=== PATIENT | female | born 2000 | race Two or more races ===

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

== ENCOUNTER 2019-12-17 22:14 | Emergency (ER) | payer BC ==
[2017-12-19 03:10] VITALS: BP 108/75
[~2019-12-17 22:14] MED LIST: CEPH-264 PO; FAMO-63 PO; NAPR-695 PO
== END 2019-12-17 23:29 | disposition left against medical advice (07) ==
LOC: ER 22:14
DX: R50.9 Fever, unspecified (principal); J02.9 Acute pharyngitis, unspecified; M54.2 Cervicalgia; Z53.21 Procedure and treatment not carried out due to patient leaving prior to being seen by health care provider

== ENCOUNTER 2020-04-11 22:37 | Emergency (ER) | payer BC ==
[~2020-04-11] VITALS: Ht 160 cm; Wt 47.7 kg
[2020-04-11 22:50] VITALS: BP 119/72
[2020-04-11] MEDS ORDERED: NAPR-683 PO (22:59)
--- NOTE | 2020-04-11 23:01 | PHYS DOC ---
Past Medical History Past Medical History: No Pertinent History Past Surgical History: No Surgical History Smoking Status: Never Smoker Alcohol Use: None Drug Use: None General Adult EDM: Chief Complaint: LOWER EXT PAIN HPI: HPI: Patient is a 20 year old female that presents with the chief complaint of non t raumatic left toe pain. States pain started this AM. States has has previous pain before. Pain with ROM left great toe. Patient requesting Xray. She has not taken any home medications. Review of Systems: Review of Systems: Constitutional: Denies fever or chills. [] Eyes: Denies change in visual acuity. [] HENT: Denies nasal congestion or sore throat. [] Respiratory: Denies cough or shortness of breath. [] Cardiovascular: Denies chest pain or edema. [] GI: Denies abdominal pain, nausea, vomiting, bloody stools or diarrhea. [] : Denies dysuria. [] Musculoskeletal: left toe pain. Integument: Denies rash. [] Neurologic: Denies headache, focal weakness or sensory changes. [] Endocrine: Denies polyuria or polydipsia. [] Lymphatic: Denies swollen glands. [] Psychiatric: Denies depression or anxiety. [] Heart Score: Risk Factors: Risk Factors: DM, Current or recent (<one month) smoker, HTN, HLP, family histo ry of CAD, obesity. Risk Scores: Score 0 - 3: 2.5% MACE over next 6 weeks - Discharge Home Score 4 - 6: 20.3% MACE over next 6 weeks - Admit for Clinical Observation Score 7 - 10: 72.7% MACE over next 6 weeks - Early Invasive Strategies Allergies: Allergies: Allergies Coded Allergies Type Severity Reaction Last Updated Verified No Known Drug Allergies 11/24/16 No Physical Exam: PE: Constitutional: Well developed, well nourished, no acute distress, non-toxic appearance. [] HENT: Normocephalic, atraumatic, bilateral external ears normal, oropharynx moist, no oral exudates, nose normal. [] Eyes: PERRLA, EOMI, conjunctiva normal, no discharge. [] Neck: Normal range of motion, no tenderness, supple, no stridor. [] Cardiovascular:Heart rate regular rhythm, no murmur [] Lungs & Thorax: Bilateral breath sounds clear to auscultation [] Abdomen: Bowel sounds normal, soft, no tenderness, no masses, no pulsatile masses. [] Skin: Warm, dry, no erythema, no rash. [] Back: No tenderness, no CVA tenderness. [] Extremities: No tenderness, no cyanosis, no clubbing, ROM intact, no edema. [pain with rom left great toe, feels warm to touch, minimal swelling] Neurologic: Alert and oriented X 3, normal motor function, normal sensory function, no focal deficits noted. [] Psychologic: Affect normal, judgement normal, mood normal. [] EKG: EKG: [] Radiology/Procedures: Radiology/Procedures: [] Impression: xray negative Course & Med Decision Making: Course & Med Decision Making Pertinent Labs and Imaging studies reviewed. (See chart for details) [] Xray negative. Uric acid level drawn. Rx naprosyn Dragon Disclaimer: Dragon Disclaimer: This electronic medical record was generated, in whole or in part, using a voice recognition dictation system. Departure Departure Impression: Primary Impression: Toe pain, left Disposition: 01 HOME, SELF-CARE Condition: STABLE Referrals: NO PCP (PCP) Patient Instructions: Crush Injury, Fingers or Toes Scripts Naproxen (NAPROSYN) 500 Mg Tablet 500 MG PO BID, #20 TAB Prov: LORENZO GAO I DO 04/11/20 Justicifation of Admission Dx: Justifications for Admission: Justification of Admission Dx: N/A LORENZO GAO I DO Apr 11, 2020 23:01
--- NOTE | 2020-04-12 07:19 | RAD ---
Right toes 3 views: Reason for examination: Pain. No acute fracture or dislocation is seen. The bone density is normal. No abnormal periosteal is seen. There does appear to be some fragmentation at the sesamoid bone adjacent to the head of the first metatarsal bone. This however appears to be chronic. Joint spaces are maintained. IMPRESSION: No acute bony abnormality evident at the right toes. Electronically signed by: Mere Vanegas MD (04/12/2020 7:16 AM) GURPREET
== END 2020-04-11 23:26 | disposition home or self-care (01) ==
LOC: ER 22:37
DX: M79.674 Pain in right toe(s) (principal)
CPT/HCPCS: 36415; 73660; 84550; 99284

== ENCOUNTER 2021-12-10 19:57 | Emergency (ER) | payer BC, OTHER ==
[~2021-12-10] VITALS: Ht 160 cm; Wt 60.4 kg
[~2021-12-10 19:57] MED LIST changes: +NAPR-683 PO
[2021-12-10 20:48] VITALS: BP 121/67
--- NOTE | 2021-12-10 22:00 | PHYS DOC ---
Past Medical History Past Medical History: No Pertinent History Past Surgical History: No Surgical History Smoking Status: Never Smoker Alcohol Use: None Drug Use: None General Adult EDM: Chief Complaint: EARACHE/EAR PAIN HPI: HPI: Patient is a 21 year old female who presents with left ear symptoms for 4 days. Patient reports she has had a high-pitched sound as well as a full feeling in the left ear. Patient denies fever, chills, generalized weakness, sore throat, nasal congestion, ear pain. Review of Systems: Review of Systems: ROS negative or noncontributory except as mentioned in HPI. Heart Score: C/O Chest Pain: No Allergies: Allergies: Allergies Coded Allergies Type Severity Reaction Last Updated Verified No Known Drug Allergies 11/24/16 No Physical Exam: PE: Constitutional: Well developed, well nourished, no acute distress, non-toxic appearance, gravid abdomen. HENT: Normocephalic, atraumatic, bilateral external ears normal, no tragal tenderness bilaterally, bilateral ear canals nonerythematous without purulence or discharge, bilateral tympanic membranes pearly hamilton without rupture or fluid levels. Eyes: EOMI, conjunctiva normal, no discharge. Neck: Normal range of motion, no tenderness, supple, no stridor. Skin: Warm, dry, no erythema, no rash. Extremities: No cyanosis, no clubbing, ROM intact, no edema. Neurologic: Alert and oriented x4, normal motor function, normal sensory function, no focal deficits noted. Current Patient Data: Vital Signs: Vital Signs Date Time Temp Pulse Resp B/P (MAP) Pulse Ox O2 Delivery O2 Flow Rate FiO2 12/10/21 20:48 97.8 97 18 121/67 (85) 96 Room Air 97.8 Course & Med Decision Making: Course & Med Decision Making Pertinent Labs and Imaging studies reviewed. (See chart for details) 21-year-old female who presents with tinnitus in the left ear. There is no evidence of infection, obstruction or TM rupture at this time. Patient is advised to follow-up with ENT if she has persistent concerns. Return precautions are provided. Patient understands and is agreeable to discharge plan. Dragon Disclaimer: Dragon Disclaimer: This electronic medical record was generated, in whole or in part, using a voice recognition dictation system. Departure Departure Impression: Primary Impression: Tinnitus of left ear Disposition: 01 HOME / SELF CARE / HOMELESS Condition: STABLE Referrals: NO PCP (PCP) PINEDA BAILON MD Patient Instructions: Tinnitus Additional Instructions: EMERGENCY DEPARTMENT GENERAL DISCHARGE INSTRUCTIONS Thank you for coming to [facility] Emergency Department (ED) today and trusting us with you care. We trust that you had a positive experience in our Emergency Department. If you wish to speak to the department management, you may call the director at . YOUR FOLLOW UP INSTRUCTIONS ARE FOLLOWS: 1. Follow up with your primary care doctor. If you do not have a primary doctor, please ask for a resource list of physicians or clinics that may be able to assist you with follow up care. 2. The emergency provider has interpreted your imaging studies, if any were ordered. The radiology clinical applications specialist also reviewed them. If there is a change in the findings, you will be notified in 48 hours when at all possible. 3. If a lab test or culture has been done, your results will be reviewed and you will be notified if you need a change in treatment. 4. Follow instructions verbalized to you and refer to the printouts if needed. ADDITIONAL INSTRUCTIONS AND INFORMATION: 1. Your care today has been supervised by a physician who is specially trained in emergency care. Many problems require more than one evaluation for a complete diagnosis and treatment. We recommend that you schedule your follow up appointment as recommended to ensure complete treatment of you illness or injury. If you are unable to obtain follow up care and continue to have a problem, or if your condition worsens, we recommend that you return to the ED. 2. We are not able to safely determine your condition over the phone nor are we able to give sound medical advice over the phone. For these safety reasons, if you call for medical advice we will ask you to come to the ED for further evaluation. 3. If you have any questions regarding these discharge instructions please call the ED at . SAFETY INFORMATION: In the interest of safety, wellness, and injury prevention; we encourage you to wear your seat belt, if you smoke; quite smoking, and we encourage family to use a protective helmet for bicycling and other sporting events that present an increased risk for head injury. IF YOUR SYMPTOMS WORSEN OR NEW SYMPTOMS DEVELOP, OR YOU HAVE CONCERNS ABOUT YOUR CONDITION; OR IF YOUR CONDITION WORSENS WHILE YOU ARE WAITING FOR YOUR FOLLOW UP APPOINTMENT; EITHER CONTACT YOUR PRIMARY CARE DOCTOR, THE PHYSICIAN WHOSE NAME AND NUMBER YOU WERE GIVEN, OR RETURN TO THE ED IMMEDIATELY. DENILSON MERAZ December 10, 2021 22:00
== END 2021-12-10 22:23 | disposition home or self-care (01) ==
LOC: ER 19:57
DX: H93.12 Tinnitus, left ear (principal)
CPT/HCPCS: 99281